=== PATIENT | male | born 1965 | race African-American/Black ===

== ENCOUNTER 2023-03-10 19:09 | Emergency (ER) | payer MEDICAID ==
[~2023-03-10] VITALS: Ht 172.7 cm; Wt 92.6 kg
[2023-03-10 19:47] VITALS: BP 158/96; PULSE 68; RESP 17; TEMP 98.6; O2SAT 98
[2023-03-10] MEDS ORDERED: MAGNESIUM/ALUMINUM HYDROXIDE/SIMETHICONE 30ML UDC PO STA (19:47)
[2023-03-10] MEDS ORDERED: FAMOTIDINE 20MG TABLET PO ONE (20:00)
[2023-03-10 20:19] LABS: CLARITY URINE CLEAR (CLEAR); COLOR URINE YELLOW (YELLOW); GLUCOSE URINE NEGATIVE (NEGATIVE); KETONES URINE NEGATIVE (NEGATIVE); LEUKOCYTE ESTERASE URINE NEGATIVE (NEGATIVE); NITRITE URINE NEGATIVE (NEGATIVE); OCCULT BLOOD URINE NEGATIVE (NEGATIVE); PH URINE 5.5 (4.5-8.0); PROTEIN URINE NEGATIVE (NEGATIVE); SPECIFIC GRAVITY URINE 1.019 (1.005-1.030)
[2023-03-10 20:19] LABS: BASOPHILS % 1.1 % (0.0-2.0); MEAN CORPUSCULAR HEMOGLOBIN 28.4 pg (28.0-32.0); MEAN CORPUSCULAR HGB CONC 33.4 g/dL (31.0-37.0); MEAN CORPUSCULAR VOLUME 85.1 fL (80.0-94.0); MEAN PLATELET VOLUME 8.5 fl (7.4-10.4); MONOCYTES % 10.1 % (2.0-8.0); NEUTROPHILS % 40.8 % (40.0-76.0); PLATELET 239 x1000/uL (130-400); RED BLOOD CELL COUNT 4.94 mill/uL (4.7-6.1); RED CELL DISTRIBUTION WIDTH 13.9 % (11.6-14.6); WHITE BLOOD COUNT 6.9 x1000/uL (4.5-11.0)
[2023-03-10 20:22] LABS: CHLORIDE 109 mEq/L (98-107); INDEX HEMOLYSI 2 (1-3); INDEX ICTERIC 1 (1-4); INDEX LIPEMIC 1 (1-3); POTASSIUM 4.1 mEq/L (3.5-5.1); SODIUM 141 mEq/L (136-145)
[2023-03-10 20:33] LABS: ALANINE AMINOTRANSFERASE 34 IU/L (13-61); ALBUMIN 3.9 g/dL (3.4-5.0); ASPARTATE AMINOTRANSFERASE 27 IU/L (15-37); BILIRUBIN TOTAL 0.3 mg/dL (0.1-1.0); CALCIUM 8.7 mg/dL (8.5-10.1); CARBON DIOXIDE 27 mEq/L (21-32); CREATININE 1.2 mg/dL (0.6-1.3); GLUCOSE 99 mg/dL (70-105); PROTEIN TOTAL 7.6 g/dL (6.0-8.3); TROPONIN I HIGH SENSITIVITY 7 ng/L (<78); UREA NITROGEN BLOOD 15 mg/dL (7-21)
[2023-03-10] MEDS: MAGNESIUM/ALUMINUM HYDROXIDE/SIMETHICONE 30ML UDC PO NR ×2 (21:30→21:54)
[2023-03-10] MEDS ORDERED: MAG355OR21 MT (22:16)
[2023-03-10] MEDS ORDERED: FAMO-135 MT (22:16)
== END 2023-03-10 22:33 | disposition home or self-care (01) ==
LOC: ER 19:09
DX: R10.9 Unspecified abdominal pain (principal)
CPT/HCPCS: 36415; 74176; 80053; 81003; 84484; 85025; 93005; 99284

== ENCOUNTER 2023-07-07 18:14 | Emergency (ER) | payer MEDICAID ==
[~2023-07-07] VITALS: Ht 177.8 cm; Wt 91.0 kg
[~2023-07-07 18:14] MED LIST: FAMO-135 MT; MAG355OR21 MT
[2023-07-07 18:17] VITALS: PULSE 91
[2023-07-07 18:19] VITALS: BP 164/98; RESP 16; TEMP 98.1; O2SAT 98
[2023-07-07] MEDS ORDERED: AZIT250T12 MT (21:22)
== END 2023-07-07 21:56 | disposition home or self-care (01) ==
LOC: ER 18:14
DX: R05.9 Cough, unspecified (principal); I51.7 Cardiomegaly
CPT/HCPCS: 71045; 99283

== ENCOUNTER 2024-02-12 17:58 | Emergency (ER) | payer MEDICAID ==
[~2024-02-12] VITALS: Ht 177.8 cm; Wt 99.0 kg
[~2024-02-12 17:58] MED LIST changes: +AZIT250T12 MT
[2024-02-12 18:11] VITALS: O2SAT 99
[2024-02-12 18:14] VITALS: BP 149/94; PULSE 80; TEMP 98.8; O2SAT 100
[2024-02-12 21:26] VITALS: RESP 17
== END 2024-02-12 21:09 | disposition home or self-care (01) ==
LOC: ER 17:58
DX: I10 Essential (primary) hypertension (principal); Z79.899 Other long term (current) drug therapy
CPT/HCPCS: 99281

== ENCOUNTER 2025-05-06 21:03 | Emergency (ER) | payer MEDICAID, OTHER ==
[~2025-05-06] VITALS: Ht 177.8 cm; Wt 99.2 kg
[2025-05-06 21:27] VITALS: O2SAT 99
[2025-05-06 22:18] LABS: BASOPHILS % 0.8 % (0.0-2.0); EOSINOPHILS % 3.0 % (0.0-5.0); HEMATOCRIT. 44.8 % (42.0-52.0); HEMOGLOBIN. 14.5 g/dL (14.0-18.0); LYMPHOCYTES % 43.1 % (20.0-50.0); MEAN PLATELET VOLUME 8.3 fl (7.4-10.4); MONOCYTES % 13.6 % (2.0-8.0); NEUTROPHILS % 39.5 % (40.0-76.0); PLATELET 235 x1000/uL (130-400); RED BLOOD CELL COUNT 5.20 mill/uL (4.7-6.1); RED CELL DISTRIBUTION WIDTH 14.3 % (11.6-14.6)
[2025-05-06 22:40] LABS: CREATININE 1.3 mg/dL (0.6-1.3); UREA NITROGEN BLOOD 17 mg/dL (9-23)
[2025-05-06] MEDS ORDERED: AZIT250T12 MT (23:52)
[2025-05-06] MEDS ORDERED: GUAI237L83 MT (23:52)
[2025-05-06] MEDS ORDERED: IBUP-2030 MT (23:52)
[2025-05-06 23:59] VITALS: BP 133/86; PULSE 71; RESP 17; TEMP 37; O2SAT 96
[2025-05-07] MEDS: IBUPROFEN 800MG TABLET PO ONE (00:29)
[2025-05-07] MEDS: AZITHROMYCIN 500 MG TABLET PO ONE (00:30)
== END 2025-05-07 00:10 | disposition home or self-care (01) ==
LOC: ER 21:42
DX: J20.9 Acute bronchitis, unspecified (principal); Z20.822 Contact with and (suspected) exposure to COVID-19; Z79.899 Other long term (current) drug therapy
CPT/HCPCS: 36415; 71045; 80048; 85025; 87426; 93005; 99285